=== PATIENT | male | born 1950 | race Caucasian/White ===

== ENCOUNTER 2021-12-22 08:39 | Day surgery (SDC) | payer MEDICARE, SELFPAY ==
[2021-12-17 10:10] VITALS: BMI 31.8
--- NOTE | 2021-12-19 09:22 | HO.ANESPROP2 ---
Documented by User: Joann Azar NP 12/19/21 09:23 HPI - Anesthesia Eval Consult details Narrative: 71yo M for Right Cataract Extraction IOL Insertion PCP cleared No previous cataract on record PMFSH Past Medical History Medical History COVID-19 vaccine series completed Diabetes Elevated cholesterol HTN (hypertension) Surgical History Surgical History H/O colonoscopy Hx of repair of left rotator cuff Social History Social History Are you a primary healthcare specialist to a significant other at home: No Do you presently have visiting nurse or other home services: No Patient Tobacco Use Status: Never used Tobacco Use of substances other than those prescribed or required for medical reasons: No Have you been hit, kicked, punched, or otherwise hurt by someone within the past year? If so, by whom?: No Are you DNR?: No Advance Directives: No (states is his & daughter) Advance Directives Information Provided: Yes Advance Directives on File: No Recently lost weight without trying: No Eating poorly because of decreased appetite: No Nutrition Risks: No Nutritional Risk Poor oral hygiene: No Meds Allergies Allergy/AdvReac Type Severity Reaction Status Date / Time No Known Allergies Allergy Verified 12/17/21 10:09 Home Medications Medication Instructions Recorded Confirmed Last Taken Type amlodipine 10 mg tablet 10 mg PO DAILY 12/17/21 12/17/21 Unknown History atorvastatin 10 mg tablet 10 mg PO DAILY 12/17/21 12/17/21 Unknown History cholecalciferol (vitamin D3) 25 25 mcg PO DAILY 12/17/21 12/17/21 Unknown History mcg (1,000 unit) capsule (Vitamin D3) cyanocobalamin (vitamin B-12) 1,000 mcg PO DAILY 12/17/21 12/17/21 Unknown History 1,000 mcg tablet (Vitamin B-12) irbesartan 150 mg tablet 300 mg PO QAM 12/17/21 12/17/21 Unknown History levomefolate 500 mcg-niacinamide 1 tab PO BID 12/17/21 12/17/21 Unknown History 750 xj-jwgszk-Gr-selen-chrom tablet (Nicotinamide (with chromium)) sitagliptin 100 mg tablet (Januvia) 100 mg PO QAM 12/17/21 12/17/21 Unknown History Exam Exam Date and Time: December 19, [id number] Height,Weight and Vital Signs: Height 5 ft 7 in Weight 92.079 kg Assessment and Plan Assessment Anesthesia Assessment: Chart Reviewed Documented by User: Tommy Steiner MD 12/22/21 12:28 [facility] Past Medical History Medical History COVID-19 vaccine series completed Diabetes Elevated cholesterol HTN (hypertension) Family History Family history of problems with anesthesia: No Surgical History Surgical History H/O colonoscopy Hx of repair of left rotator cuff History of Problems with Anesthesia: No Social History Social History Are you a primary healthcare specialist to a significant other at home: No Do you presently have visiting nurse or other home services: No Patient Tobacco Use Status: Never used Tobacco Use of substances other than those prescribed or required for medical reasons: No Have you been hit, kicked, punched, or otherwise hurt by someone within the past year? If so, by whom?: No Are you DNR?: No Advance Directives: No (states is his & daughter) Advance Directives Information Provided: Yes Advance Directives on File: No Recently lost weight without trying: No Eating poorly because of decreased appetite: No Nutrition Risks: No Nutritional Risk Poor oral hygiene: No Meds Allergies Allergy/AdvReac Type Severity Reaction Status Date / Time No Known Allergies Allergy Verified 12/17/21 10:09 Home Medications Medication Instructions Recorded Confirmed Last Taken Type amlodipine 10 mg tablet 10 mg PO DAILY 12/17/21 12/17/21 Unknown History atorvastatin 10 mg tablet 10 mg PO DAILY 12/17/21 12/17/21 Unknown History cholecalciferol (vitamin D3) 25 25 mcg PO DAILY 12/17/21 12/17/21 Unknown History mcg (1,000 unit) capsule (Vitamin D3) cyanocobalamin (vitamin B-12) 1,000 mcg PO DAILY 12/17/21 12/17/21 Unknown History 1,000 mcg tablet (Vitamin B-12) irbesartan 150 mg tablet 300 mg PO QAM 12/17/21 12/17/21 Unknown History levomefolate 500 mcg-niacinamide 1 tab PO BID 12/17/21 12/17/21 Unknown History 750 fg-klleoj-Xj-selen-chrom tablet (Nicotinamide (with chromium)) sitagliptin 100 mg tablet (Januvia) 100 mg PO QAM 12/17/21 12/17/21 Unknown History Exam Airway Mallampati Class: II TM Dist: >3cm Neck ROM: Full Loose/Missing/Broken Teeth: No (upper front caps) Heart: [id number] Lungs: cta b/l Assessment and Plan Final Anesthetic Review Family History of Problems with Anesthesia: No History of Problems with Anesthesia: No NPO: Yes ASA Class: III Final Preanesthetic Review: No Changes in Pt Med Stat, Meds/Allgs Chart Reviewed, Consent Obtained/Reviewed and Anes Risks/Benef Reviewed Patient Risk: Intermediate Procedure Risk: Low Assessment/Block/Sedation in SS: Assess/Block/Sedation-SS Anesthetic Plan Anesthetic Plan: MAC: and Agree w/ Assess. and Plan Disposition: Standard PACU
--- NOTE | 2021-12-19 10:47 | MHC.SHP ---
Pre-Procedural Eval Section A Date of Service: 12/19/21 The patient is an INPATIENT: No Changes since office visit: No Cold of Flu in the past 2 weeks, No New Medical Problems, No Changes in Medication and No Patient answered all questions The History & Physical has been completed within 30 days and I have reviewed it.: Yes Section B Chief Complaint: cataract Allergies: Allergies Allergy/AdvReac Type Severity Reaction Status Date / Time No Known Allergies Allergy Verified 12/17/21 10:09 Plan Diagnosis/Plan: Unchanged I have reviewed the history and physical and performed a pertinent physical examination on my patient. No changes have occurred unless specified.
[2021-12-22 08:55] VITALS: BP 154/84; PULSE 76; RESP 16; TEMP 36.3; O2SAT 99
[2021-12-22 09:02] LABS: Glucose, Whole Blood 164 mg/dL (60-115)
[2021-12-22] MEDS: Cyclopentolate 1 % Ophth Sol 2 ML DRPBTL 1 DROP EYE-RIGHT ×3 (11:55→11:58)
[2021-12-22] MEDS: Tetracaine HCl/PF 0.5% Oph Sol 4 ML DROPS 1 DROP EYE-RIGHT (11:55)
[2021-12-22] MEDS: Tropicamide 1 % Ophth Sol 3 ML BTL 1 DROP EYE-RIGHT ×3 (11:55→11:58)
[2021-12-22] MEDS: Phenylephrine HCL 2.5% Oph SoL 2 ML BOTTLE 1 DROP EYE-RIGHT ×3 (11:56→11:59)
[2021-12-22] MEDS: Lactated Ringers 500 ML 50 ML IV (11:59)
--- NOTE | 2021-12-22 13:11 | HO.PNOPHT ---
Ophthalmology Procedure Procedure Date of Service: 12/22/21 Ophthalmology Viscoelastic: Nicole Littlejohnt Dual Pack Pro Ophthalmology Lenses: TECCLINT [id number] (21) Procedure Notes: PREOPERATIVE DIAGNOSIS: Decreased visual acuity right eye secondary to cataract POSTOPERATIVE DIAGNOSIS: Same PROCEDURE: Right cataract extraction with intraocular lens insertion SURGEON: Akil Sorensen M.D. ANESTHESIA: Topical/MAC ESTIMATED BLOOD LOSS: None COMPLICATIONS: None After obtaining informed consent, the patient was brought to the operating room suite and placed in the supine position. After adequate sedation per anesthesia, topical drops of Tetracaine were given to the right eye. The eye was then prepped and draped in the usual sterile fashion. The operating room microscope was then positioned over the operative eye and a lid speculum placed. A paracentesis was created. Viscoelastic was then instilled into the anterior chamber. A three plane incision was then created temporally, utilizing a 2.85 mm keratome. Capsulotomy forceps were then utilized to create a circular tear capsulotomy. Hydrodissection and hydrodelineation were carried out until adequate mobilization of the nucleus occurred. Phacoemulsification was then utilized to remove the dense central nucleus followed by removal of the cortical material utilizing the automated aspiration irrigation unit. Viscoelastic was instilled into the posterior capsular bag followed by placement of a posterior chamber intraocular lens without difficulty. The residual Viscoelastic was then removed utilizing the automated IA machine. The wound was checked and found to be watertight. The patient tolerated the procedure well and the lid speculum was removed. Intracameral injection of Vigamox 0.1 mL followed by a subtenon injection of Kenalog-40 0.2 mL were administered. The patient will be seen in the a.m.
[2021-12-22 13:38] VITALS: BP 157/72; PULSE 84; RESP 18; TEMP 36.6; O2SAT 97
== END 2021-12-22 13:55 | disposition home or self-care (01) ==
PROVIDERS: PCP Internal Medicine; Visit Provider Ophthalmology
PROC: (CPT 66985; principal; 2021-12-22 12:00)
DX: H25.11 Age-related nuclear cataract, right eye (principal); H52.4 Presbyopia; H40.213 Acute angle-closure glaucoma, bilateral; Q14.1 Congenital malformation of retina; E78.00 Pure hypercholesterolemia, unspecified; I10 Essential (primary) hypertension; E11.9 Type 2 diabetes mellitus without complications; Z79.84 Long term (current) use of oral hypoglycemic drugs; Z79.899 Other long term (current) drug therapy
CPT/HCPCS: 66984; 82947; J2250; J3010; J3300; V2632

== ENCOUNTER 2022-01-05 09:24 | Day surgery (SDC) | payer MEDICARE, SELFPAY ==
[2021-12-17 10:12] VITALS: BMI 31.8
--- NOTE | 2022-01-01 10:42 | MHC.SHP ---
Pre-Procedural Eval Section A Date of Service: 01/01/22 The patient is an INPATIENT: No Changes since office visit: No Cold of Flu in the past 2 weeks, No New Medical Problems, No Changes in Medication and No Patient answered all questions The History & Physical has been completed within 30 days and I have reviewed it.: Yes Section B Chief Complaint: cataract Allergies: Allergies Allergy/AdvReac Type Severity Reaction Status Date / Time No Known Allergies Allergy Verified 12/17/21 10:09 Plan Diagnosis/Plan: Unchanged I have reviewed the history and physical and performed a pertinent physical examination on my patient. No changes have occurred unless specified.
--- NOTE | 2022-01-02 09:34 | P.CONAN_ITS ---
Documented by User: Joann Azar NP 01/02/22 09:40 HPI - Anesthesia Eval Consult details Narrative: 71yo M for Left Cataract Extraction IOL Insertion PCP cleared Right eye 12/22 with MAC: Fent 50, Midaz 1 PMFSH Past Medical History Medical History COVID-19 vaccine series completed Diabetes Elevated cholesterol HTN (hypertension) Family History Family history of problems with anesthesia: No Surgical History Surgical History H/O colonoscopy Hx of repair of left rotator cuff History of Problems with Anesthesia: No Social History Social History Are you a primary home care and home health aides teacher to a significant other at home: No Do you presently have visiting nurse or other home services: No Patient Tobacco Use Status: Never used Tobacco Use of substances other than those prescribed or required for medical reasons: No Have you been hit, kicked, punched, or otherwise hurt by someone within the past year? If so, by whom?: No Are you DNR?: No Advance Directives: No Advance Directives Information Provided: Yes Advance Directives on File: No Recently lost weight without trying: No Eating poorly because of decreased appetite: No Nutrition Risks: No Nutritional Risk Poor oral hygiene: No Meds Allergies Allergy/AdvReac Type Severity Reaction Status Date / Time No Known Allergies Allergy Verified 12/17/21 10:09 Home Medications Medication Instructions Recorded Confirmed Last Taken Type amlodipine 10 mg tablet 10 mg PO DAILY 12/17/21 01/05/22 01/05/22 History atorvastatin 10 mg tablet 10 mg PO DAILY 12/17/21 01/05/22 Unknown History cholecalciferol (vitamin D3) 25 25 mcg PO DAILY 12/17/21 01/05/22 Unknown History mcg (1,000 unit) capsule (Vitamin D3) cyanocobalamin (vitamin B-12) 1,000 mcg PO DAILY 12/17/21 01/05/22 Unknown History 1,000 mcg tablet (Vitamin B-12) irbesartan 150 mg tablet 300 mg PO QAM 12/17/21 01/05/22 Unknown History levomefolate 500 mcg-niacinamide 1 tab PO BID 12/17/21 01/05/22 Unknown History 750 jn-ubizlz-Gf-selen-chrom tablet (Nicotinamide (with chromium)) sitagliptin 100 mg tablet (Januvia) 100 mg PO QAM 12/17/21 01/05/22 Unknown History Exam Exam Date and Time: January 02, 2022 0934 Height,Weight and Vital Signs: Height 5 ft 7 in Weight 92.079 kg Assessment and Plan Assessment Anesthesia Assessment: Chart Reviewed Final Anesthetic Review Family History of Problems with Anesthesia: No History of Problems with Anesthesia: No Documented by User: Analia Sandoval MD 01/05/22 10:38 PMFSH Past Medical History Medical History COVID-19 vaccine series completed Diabetes Elevated cholesterol HTN (hypertension) Surgical History Surgical History H/O colonoscopy Hx of repair of left rotator cuff Social History Social History Are you a primary home care and home health aides teacher to a significant other at home: No Do you presently have visiting nurse or other home services: No Patient Tobacco Use Status: Never used Tobacco Use of substances other than those prescribed or required for medical reasons: No Have you been hit, kicked, punched, or otherwise hurt by someone within the past year? If so, by whom?: No Are you DNR?: No Advance Directives: No Advance Directives Information Provided: Yes Advance Directives on File: No Recently lost weight without trying: No Eating poorly because of decreased appetite: No Nutrition Risks: No Nutritional Risk Poor oral hygiene: No Meds Allergies Allergy/AdvReac Type Severity Reaction Status Date / Time No Known Allergies Allergy Verified 12/17/21 10:09 Home Medications Medication Instructions Recorded Confirmed Last Taken Type amlodipine 10 mg tablet 10 mg PO DAILY 12/17/21 01/05/22 01/05/22 History atorvastatin 10 mg tablet 10 mg PO DAILY 12/17/21 01/05/22 Unknown History cholecalciferol (vitamin D3) 25 25 mcg PO DAILY 12/17/21 01/05/22 Unknown History mcg (1,000 unit) capsule (Vitamin D3) cyanocobalamin (vitamin B-12) 1,000 mcg PO DAILY 12/17/21 01/05/22 Unknown History 1,000 mcg tablet (Vitamin B-12) irbesartan 150 mg tablet 300 mg PO QAM 12/17/21 01/05/22 Unknown History levomefolate 500 mcg-niacinamide 1 tab PO BID 12/17/21 01/05/22 Unknown History 750 lv-grguth-Qh-selen-chrom tablet (Nicotinamide (with chromium)) sitagliptin 100 mg tablet (Januvia) 100 mg PO QAM 12/17/21 01/05/22 Unknown History Exam Height,Weight and Vital Signs: Height 5 ft 7 in Weight 92.079 kg Vital Signs Temp Pulse Resp BP Pulse Ox O2 Del Method 01/05/22 10:02 96.9 F 68 16 168/79 H 97 Room Air Pertinent Lab Results Pertinent Lab Results: Lab Results 01/05/22 Range/Units 10:01 POC Glucose 154 H (60-115) mg/dL Airway Mallampati Class: II TM Dist: >3cm Neck ROM: Full Loose/Missing/Broken Teeth: Yes (Caps front intact. Denies loose or broken teeth) Heart: RRR Lungs: CTAB Assessment and Plan Assessment Anesthesia Assessment: Anesthesia Plan Discussed Final Anesthetic Review NPO: Yes ASA Class: II Final Preanesthetic Review: No Changes in Pt Med Stat, Meds/Allgs Chart Reviewed, Consent Obtained/Reviewed and Anes Risks/Benef Reviewed Patient Risk: Low Procedure Risk: Low Assessment/Block/Sedation in SS: Assess/Block/Sedation-SS Anesthetic Plan Anesthetic Plan: MAC: Disposition: Standard PACU
[2022-01-05 10:02] VITALS: BP 168/79; PULSE 68; RESP 16; TEMP 36.1; O2SAT 97
[2022-01-05] MEDS: Lactated Ringers 500 ML 50 ML IV (10:03)
[2022-01-05] MEDS: Tetracaine HCl/PF 0.5% Oph Sol 4 ML DROPS 1 DROP EYE-LEFT (10:03)
[2022-01-05] MEDS: Tropicamide 1 % Ophth Sol 3 ML BTL 1 DROP EYE-LEFT ×3 (10:04→10:14)
[2022-01-05 10:05] LABS: Glucose, Whole Blood 154 mg/dL (60-115)
[2022-01-05] MEDS: Cyclopentolate 1 % Ophth Sol 2 ML DRPBTL 1 DROP EYE-LEFT ×3 (10:05→10:15)
[2022-01-05] MEDS: Phenylephrine HCL 2.5% Oph SoL 2 ML BOTTLE 1 DROP EYE-LEFT ×3 (10:08→10:19)
--- NOTE | 2022-01-05 11:16 | HO.PNOPHT ---
Ophthalmology Procedure Procedure Date of Service: 01/05/22 Ophthalmology Viscoelastic: Healelroy Duet Dual Pack Pro Ophthalmology Lenses: TECCLINT [id number] (21) Procedure Notes: PREOPERATIVE DIAGNOSIS: Decreased visual acuity left eye secondary to cataract POSTOPERATIVE DIAGNOSIS: Same PROCEDURE: Left cataract extraction with intraocular lens insertion SURGEON: Akil Sorensen M.D. ANESTHESIA: Topical/MAC ESTIMATED BLOOD LOSS: None COMPLICATIONS: None After obtaining informed consent, the patient was brought to the operation room suite and placed in the supine position. After adequate sedation per anesthesia, topical drops of Tetracaine were given to the left eye. The eye was then prepped and draped in the usual sterile fashion. The operating room microscope was then positioned over the operative eye and a lid speculum placed. A paracentesis was created. Viscoelastic was then instilled into the anterior chamber. A three plane incision was then created temporally, utilizing a 2.85 mm keratome. Capsulotomy forceps were then utilized to create a circular tear capsulotomy. Hydrodissection and hydrodelineation were carried out until adequate mobilization of the nucleus occurred. Phacoemulsification was then utilized to remove the dense central nucleus followed by removal of the cortical material utilizing the automated aspiration irrigation unit. Viscoat elastic was instilled into the posterior capsular bag followed by placement of a posterior chamber intraocular lens without difficulty. The residual Viscoat elastic was then removed utilizing the automated IA machine. The wound was check and found to be watertight. The patient tolerated the procedure well and the lid speculum was removed. Intracameral injection of Vigamox 0.1 mL followed by a subtenon injection of Kenalog-40 0.2 mL were administered. The patient will be seen in the a.m.
[2022-01-05 11:44] VITALS: BP 135/76; PULSE 65; RESP 16; TEMP 36.6; O2SAT 99
== END 2022-01-05 11:53 | disposition home or self-care (01) ==
PROVIDERS: PCP Internal Medicine; Visit Provider Ophthalmology
PROC: (CPT 66985; principal; 2022-01-05 11:30)
DX: H25.12 Age-related nuclear cataract, left eye (principal); H52.4 Presbyopia; Q14.1 Congenital malformation of retina; I10 Essential (primary) hypertension; E78.00 Pure hypercholesterolemia, unspecified; E11.9 Type 2 diabetes mellitus without complications; Z79.84 Long term (current) use of oral hypoglycemic drugs; Z79.899 Other long term (current) drug therapy
CPT/HCPCS: 66984; 82947; J2250; J3010; J3300; V2632